=== PATIENT | male | born 1955 | race Caucasian/White ===

== ENCOUNTER 2019-05-23 16:04 | Emergency (ER) | payer MEDICARE, OTHER ==
[2019-05-23] MEDS ORDERED: Ondansetron 4 MG Tab.DIS PO ONE (16:24)
[2019-05-23] MEDS ORDERED: HYDROmorphone 1 MG/ML Syringe IM ONE (16:24)
[2019-05-23] MEDS ORDERED: Ketorolac 30 MG/ML SDV IM ONE (16:24)
--- NOTE | 2019-05-23 16:30 | EDM.PDOC ---
ED HPI GENERAL MEDICAL PROBLEM - General Chief Complaint: Abdominal Pain Stated Complaint: PSIN KIDNEY STONE Time Seen by Provider: 05/23/19 16:15 Source of Information: Reports: Patient, Family History Limitations: Reports: No Limitations - History of Present Illness INITIAL COMMENTS - FREE TEXT/NARRATIVE: 63 yo male here with R flank pain that reminds him of kidney stones he's had in the past. Had this pain most of the day this past Tuesday that resolved only to return today. Has nausea without vomiting. No fever. Presented to the clinic and was then referred to the ER. Onset: Today Onset Date: 05/23/19 Duration: Minutes:, Constant Location: Reports: Back (R flank) Quality: Reports: Stabbing Severity: Severe Improves with: Reports: None Worsens with: Reports: None Context: Reports: Other (See HPI) Associated Symptoms: Reports: Nausea/Vomiting (no vomiting). 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: Other (see below) (none) abdominal Pain Score (Numeric/FACES): 10 - Related Data Allergies Allergy/AdvReac Type Severity Reaction Status Date / Time No Known Allergies Allergy Verified 05/23/19 16:24 Home Meds: Home Meds Aspirin [Halfprin] 81 mg PO DAILY 05/23/19 [History] Fenofibrate 160 mg PO DAILY 05/23/19 [History] Metoprolol Tartrate 50 mg PO BID 05/23/19 [History] Pantoprazole [ProTONIX] 40 mg PO DAILY 05/23/19 [History] Simvastatin 20 mg PO BEDTIME 05/23/19 [History] Sucralfate 1 gm PO BID 05/23/19 [History] Tamsulosin [Flomax] 0.4 mg PO BEDTIME 05/23/19 [History] hydroCHLOROthiazide [Hydrochlorothiazide] 25 mg PO DAILY 05/23/19 [History] ED ROS GENERAL - Review of Systems Review Of Systems: See Below Constitutional: Reports: No Symptoms HEENT: Reports: No Symptoms Respiratory: Reports: No Symptoms Cardiovascular: Reports: No Symptoms GI/Abdominal: Reports: Nausea. Denies: Abdominal Pain, Anorexia, Black Stool, Bloody Stool, Constipation, Diarrhea, Decreased Appetite, Melena, Vomiting : Reports: No Symptoms Musculoskeletal: Reports: No Symptoms Skin: Reports: No Symptoms Neurological: Reports: No Symptoms ED EXAM, RENAL/ - Physical Exam Exam: See Below Exam Limited By: No Limitations General Appearance: Alert, WD/WN, No Apparent Distress Eye Exam: Bilateral Eye: Normal Inspection Ears: Normal External Exam, Normal Canal, Hearing Grossly Normal Nose: Normal Inspection, No Blood Throat/Mouth: Normal Inspection, Normal Lips, Normal Oropharynx, Normal Voice, No Airway Compromise Head: Atraumatic, Normocephalic Neck: Normal Inspection Respiratory/Chest: No Respiratory Distress, Lungs Clear, Normal Breath Sounds, No Accessory Muscle Use Cardiovascular: Regular Rate, Rhythm, No Edema GI/Abdominal: Normal Bowel Sounds, Soft, Non-Tender, No Distention Back Exam: Normal Inspection. No: CVA Tenderness (R), CVA Tenderness (L) Extremities: Normal Inspection, Normal Range of Motion, Non-Tender, No Pedal Edema Neurological: Alert, Oriented, CN II-XII Intact, Normal Cognition, No Motor/ Sensory Deficits Psychiatric: Normal Affect, Normal Mood Skin Exam: Warm, Dry, Intact, Normal Color, No Rash Course - Vital Signs Last Recorded V/S: Last Vital Signs Temp 35.8 C 05/23/19 16:27 Pulse 57 L 05/23/19 16:27 Resp 24 H 05/23/19 16:27 BP 171/90 H 05/23/19 16:27 Pulse Ox 99 05/23/19 16:27 - Orders/Labs/Meds Labs: Laboratory Tests 05/23/19 Range/Units 17:01 Urine Color Yellow Urine Appearance Clear Urine pH 5.0 (4.5-8.0) Ur Specific Andrews 1.015 (1.008-1.030) Urine Protein Negative (NEGATIVE) mg/dL Urine Glucose (UA) Normal (NEGATIVE) mg/dL Urine Ketones Negative (NEGATIVE) mg/dL Urine Occult Blood Moderate (NEGATIVE) Urine Nitrite Negative (NEGAITVE) Urine Bilirubin Negative (NEGATIVE) Urine Urobilinogen Normal (NORMAL) mg/dL Ur Leukocyte Esterase Negative (NEGATIVE) Urine RBC 0-5 (0-5) Urine WBC 0-5 (0-5) Ur Epithelial Cells Rare Amorphous Sediment Not seen Urine Bacteria Not seen Urine Mucus Rare Meds: Medications Discontinued Medications Generic Name Dose Route Start Last Admin Trade Name Freq PRN Reason Stop Dose Admin Hydromorphone HCl 1 mg 05/23/19 16:24 05/23/19 16:35 Dilaudid IM 07/31/19 16:25 1 mg ONETIME ONE Administration Ketorolac Tromethamine 30 mg 05/23/19 16:24 05/23/19 16:35 Toradol IM 05/23/19 16:25 30 mg ONETIME ONE Administration Ondansetron HCl 4 mg 05/23/19 16:24 05/23/19 16:35 Zofran Odt PO 05/23/19 16:25 4 mg ONETIME ONE Administration - Radiology Interpretation Free Text/Narrative:: CT abd/pelvis-6 mm distal R ureteral stone. CT Results Date: 05/23/19 Departure - Departure Time of Disposition: 18:00 Disposition: Home, Self-Care 01 Condition: Fair Clinical Impression: Ureterolithiasis - Discharge Information *PRESCRIPTION DRUG MONITORING PROGRAM REVIEWED*: No *COPY OF PRESCRIPTION DRUG MONITORING REPORT IN PATIENT MAXIMO: No Instructions: Kidney Stones, [id number] Referrals: Rielly Aguilar MD [Primary Care Provider] - Forms: ED Department Discharge Additional Instructions: Strain your urine and save any sediment for the urologist. Take Percocet as needed for pain relief. Use Zofran as needed for nausea control. Take ibuprofen 600 mg every 6 hrs with food starting after 11 pm tonight. F/U with urology unless you pass the stone. Return for fever or loss of adequate pain control.
--- NOTE | 2019-05-23 17:44 | CRLCT ---
INDICATION: Right flank pain. TECHNIQUE: Noncontrast axial images with sagittal and coronal reconstructions. COMPARISON: 05/04/2012. FINDINGS: Lower chest: Normal heart size. No pericardial effusion. Lung bases are clear. Abdomen and pelvis: The unenhanced liver appears unremarkable. Cholecystectomy. Normal size spleen. The unenhanced pancreas is unremarkable. No adrenal gland abnormality. There is mild right-sided hydroureteronephrosis secondary to an obstructing stone in the distal right ureter on axial image 173 measuring 6 mm. There are 2 tiny nonobstructing intrarenal calculi on the right. There are 2 tiny nonobstructing intrarenal calculi on the left. Mild atherosclerotic changes. Normal caliber abdominal aorta. Normal appendix. Colonic diverticulosis. Minimal pericolonic inflammatory changes are seen involving the junction of the descending and sigmoid colon. Clinically correlate for acute cholecystitis. No free air or free fluid. There is a tiny stone in the right side of bladder, which appears to be just below the level the UVJ. This could be related to a recently or remotely passed stone. Prostate is enlarged. Small fat containing left inguinal hernia. Bones: Degenerative changes are see in the spine and pelvis. IMPRESSION: 1. Mild right-sided hydroureteronephrosis secondary to an obstructing 6 mm stone in the distal ureter. 2. Colonic diverticulosis with a trace amount of pericolonic inflammation at the junction of the descending and sigmoid colon. Clinically correlate for acute appendicitis. 3. Other findings as noted. Dictated by Ignacio Bruce MD @ 05/23/2019 5:42:51 PM Please note that all CT scans at this facility use dose modulation, iterative reconstruction, and/or weight-based dosing when appropriate to reduce radiation dose to as low as reasonably achievable. Dictated by: Ignacio Bruce MD @ 05/23/2019 17:42:58 (Electronically Signed)
== END 2019-05-23 18:15 | disposition home or self-care (01) ==
LOC: JP.ED 16:04
DX: N13.2 Hydronephrosis with renal and ureteral calculous obstruction (principal); Z79.82 Long term (current) use of aspirin; Z79.899 Other long term (current) drug therapy
CPT/HCPCS: 74176; 81001; 96372; 99284; A9270; J1170; J1885; 99283